=== PATIENT | female | born 1945 | race Asian ===

== ENCOUNTER 2017-08-01 15:11 | Emergency (ER) | payer BC ==
[~2017-08-01] VITALS: Ht 149.9 cm; Wt 53.5 kg
[~2017-08-01 15:11] MED LIST: ATEN50TA PO; FELO10TA PO
[2017-08-01 15:13] VITALS: Ht 149.9 cm; Wt 53.5 kg
--- NOTE | 2017-08-01 17:18 | RADRPT ---
PROCEDURE: XR Cervical Spine 3 Views. CLINICAL INDICATION: Neck pain. TECHNIQUE: AP, lateral and odontoid views of the cervical spine were performed. The images were re viewed on a PACS workstation. COMPARISON: None. FINDINGS: Osteopenia is identified. Straightening of the normal lordosis is seen. No fractures or destructive bony lesions are observed. Mild intervertebral disc space narrowing is identified from C5-C7. Exten sive anterior osteophytosis is noted from C5-C7. Facet joints are unremarkable. No prevertebral so ft tissue thickening is observed. IMPRESSION: Osteopenia. Straightening of the normal lordosis. This may be positional in nature. Mild to moderate degenerative disc disease from C5-C7. If further characterization is needed CT or MRI could be helpful. If there is high clinical suspicion for traumatic injury, further evaluation with CT should be consi dered. RPTAT: AA .Toan Paiz MD, MD Date Time Electronically viewed and signed by .Toan Paiz MD, MD on 08/01/2017 17:18 .P/
[2017-08-01] MEDS ORDERED: KETOROLAC 15 MG INJ IM STA (17:47)
[2017-08-01] MEDS ORDERED: ACET500C5 PO (17:54)
--- NOTE | 2017-08-01 18:00 | ERD ---
ER Documentation Chief Complaint Date/Time DATE: 08/01/17 TIME: 17:58 Chief Complaint NECK PAIN, HAVING TROUBLE SWALLOWING HPI 72-year-old female presents with neck pain for last 3 days. May have started after awakening from sleeping. The pain is in the posterior aspect of the neck. She denies any fall or history of significant trauma. She does have pain that radiates to the back of her neck with swallowing. She denies any fevers, cough, recent illnesses. She is able to tolerate food and liquids with pain in the neck when swallowing. ROS All systems reviewed and are negative except as per history of present illness. Medications Home Meds Active Scripts Acetaminophen* (Tylophen*) 500 Mg Capsule, 1 CAP PO Q6H Y for PAIN AND OR ELEVATED TEMP, #20 CAP Prov:AMADO WELCH MD 08/01/17 Reported Medications Felodipine* (Felodipine*) 10 Mg Tab.sr.24h, 10 MG PO QAM, TAB.SA 02/21/16 Atenolol* (Atenolol*) 50 Mg Tablet, 50 MG PO QPM, TAB 03/16/15 Allergies Allergies: Coded Allergies: No Known Drug Allergies (Unverified Allergy, Unknown, 02/21/16) PMhx/Soc History of Surgery: Yes (see EMR) Anesthesia Reaction: No Hx Neurological Disorder: No Hx Respiratory Disorders: No Hx Cardiac Disorders: Yes (PALPITATION) Hx Psychiatric Problems: Yes (DEPRESION) Hx Miscellaneous Medical Probl: Yes (HTN, syncope, pancreatic abscess, pancreasectomy, splenectomy) Hx Alcohol Use: No Hx Substance Use: No Hx Tobacco Use: No Smoking Status: Never smoker Physical Exam Vitals Vital Signs Date Time Temp Pulse Resp B/P Pulse Ox O2 Delivery O2 Flow Rate FiO2 08/01/17 15:13 99.6 94 16 172/96 97 Physical Exam Const: []Alert, not ill-appearing. Head: Atraumatic Eyes: Normal Conjunctiva ENT: Normal External Ears, Nose and Mouth. Neck: Full range of motion..~ No meningismus.Tenderness in the cervical paraspinous muscles diffusely. No midline tenderness or deformities. No tenderness or masses on the anterior neck. Resp: Clear to auscultation bilaterally Cardio: Regular rate and rhythm, no murmurs Abd: Soft, non tender, non distended. Normal bowel sounds Skin: No petechiae or rashes Back: No midline or flank tenderness Ext: No cyanosis, or edema Neur: Awake and alert Psych: Normal Mood and Affect Results 24 hrs Current Medications Medications (Trade) Dose Ordered Sig/Susan Route PRN Reason Start Time Stop Time Status Last Admin Dose Admin Ketorolac Tromethamine (Toradol) 15 mg ONCE STAT IM 08/01/17 17:47 08/01/17 17:48 DC Procedures/MDM X-ray C spine 3V Interpreted by me: Bones: [No fracture] Joints: No dislocation Foreign body: None impression-degenerative changes of the cervical spine without fracture dislocation, prevertebral swelling, additional acute findings. Patient was given Toradol 15 mg IM. Patient presents with posterior neck pain for last 3 days possibly started after sleeping. She has signs of degenerative changes. There is no signs or symptoms to suggest prevertebral swelling, obstruction, sepsis, acute coronary syndrome, PE, additional emergent causes of presenting complaints. She will treated with Tylenol further observation at home and primary care follow-up and return precautions. Departure Diagnosis: Primary Impression: Neck pain Condition: Stable Patient Instructions: Neck Pain, No Trauma Additional Instructions: Neck pain shows arthritis which may be because of pain. Recheck with primary doctor or for new or worsening symptoms. AMADO WELCH MD Aug 01, 2017 18:00
== END 2017-08-01 18:11 | disposition home or self-care (01) ==
LOC: FTE 15:11
DX: M54.2 Cervicalgia (principal); I10 Essential (primary) hypertension
CPT/HCPCS: 72040; 96372; 99284; J1885